=== PATIENT | male | born 1995 | race American Indian/Alaskan Native ===

== ENCOUNTER 2024-06-28 20:49 | Emergency (ER) | payer SELFPAY ==
[2024-06-28] MEDS: Iopamidol 612 MG/ML 100 ML Bottle IVPUSH ONE (20:58)
[2024-06-28 21:11] LABS: BASOPHILS PERCENT AUTO 0.1 % (0.0-1.0); EOSINOPHILS PERCENT AUTO 1.8 % (1.0-3.0); HEMATOCRIT 42.3 % (40.0-54.0); HEMOGLOBIN 15.1 g/dL (14.0-18.0); LYMPHOCYTES PERCENT AUTO 7.3 % (20.5-50.1); MEAN CORPUSCULAR HEMOGLOBIN 31.9 pg (27.0-34.0); MEAN CORPUSCULAR HGB CONC 35.7 g/dL (33.0-35.0); MEAN CORPUSCULAR VOLUME 89.4 fL (80-100); MONOCYTES PERCENT AUTO 5.6 % (2-8); NEUTROPHILS PERCENT AUTO 85.2 % (42.2-75.2); PLATELET COUNT,PLT 168 10^3/uL (150-450); RED BLOOD CELL COUNT 4.73 10^6/uL (4.6-6.2); WHITE BLOOD CELL COUNT,WBC 10.8 10^3/uL (5.0-10.0)
[2024-06-28] MEDS: Thiamine 500 MG in Sodium Chloride 0.9% 250 ML IV ONE (21:21)
[2024-06-28] MEDS: Sodium Chloride 0.9% 1,000 ML IV ONE ×2 (21:22→22:45)
[2024-06-28 21:36] LABS: LACTIC ACID 0.8 mmol/L (0.4-2.0)
[2024-06-28 21:42] LABS: ALANINE AMINOTRANSFERASE,ALT 28 U/L (16-63); ALBUMIN 3.6 g/dL (3.4-5.0); ALKALINE PHOSPHATASE 164 U/L (46-116); ANION GAP 14.3 mEq/L (7-13); ASPARTATE AMNIOTRANSFERASE,AST 43 U/L (15-37); BILIRUBIN TOTAL 1.5 mg/dL (0.2-1.0); BLOOD UREA NITROGEN,BUN 13 mg/dL (7-18); BUN/CREATININE RATIO 13.1 (No establ ref range); CALCIUM 9.5 mg/dL (8.5-10.1); CARBON DIOXIDE,CO2 27 mmol/L (21-32); CHLORIDE,CL 101 mmol/L (98-107); CREATININE 0.99 mg/dL (0.70-1.30); GLUCOSE RANDOM 112 mg/dL (70-99); LIPASE 46 U/L (16-77); MAGNESIUM 1.7 mg/dL (1.8-2.4); POTASSIUM,K 3.3 mmol/L (3.5-5.1); PROTEIN TOTAL,TP 7.3 g/dL (6.4-8.2); SODIUM,NA 139 mmol/L (136-145)
[2024-06-28 21:43] LABS: ESTIMATED GFR 107 mL/min (>=60); ETHANOL BLOOD MEDICAL < 3 mg/dL (0)
[2024-06-28 23:21] LABS: APPEARANCE,URINE CLEAR (CLEAR); BILIRUBIN,URINE NEGATIVE (NEGATIVE); COLOR,URINE YELLOW (YELLOW); GLUCOSE,URINE NEGATIVE (NEGATIVE); KETONES,URINE 80 (NEGATIVE); LEUKOCYTE ESTERASE,URINE NEGATIVE (NEGATIVE); NITRITE,URINE NEGATIVE (NEGATIVE); OCCULT BLOOD,URINE NEGATIVE (NEGATIVE); PROTEIN,URINE NEGATIVE (NEGATIVE); UROBILINOGEN,URINE 0.2 mg/dL (0.2-1.0)
[2024-06-28 23:23] LABS: AMPHETAMINES,URINE NEGATIVE (NEGATIVE); BARBITURATES,URINE NEGATIVE (NEGATIVE); BENZODIAZEPINE,URINE NEGATIVE (NEGATIVE); MDMA (ECSTASY), URINE NEGATIVE (NEGATIVE); METHADONE,URINE NEGATIVE (NEGATIVE); METHAMPHETAMINES,URINE NEGATIVE (NEGATIVE); OPIATES,URINE NEGATIVE (NEGATIVE); OXYCODONE,URINE NEGATIVE (NEGATIVE); PHENCYCLIDINE,URINE NEGATIVE (NEGATIVE); TCA,URINE NEGATIVE (NEGATIVE)
[2024-06-28] MEDS: LORazepam 2 MG/ML SDV IVPUSH ONE (23:34)
[2024-06-29] MEDS: diphenhydrAMINE 50 MG Cap PO ONE (03:23)
[2024-06-29] MEDS: LORazepam 1 MG Tab PO ONE ×2 (03:57→05:22)
[2024-06-29] MEDS: Haloperidol 5 MG Tab PO ONE (04:42)
[2024-06-29] MEDS: diazePAM 5 MG Tab PO ONE (06:12)
[2024-06-29] MEDS: Haloperidol Lactate 5 MG/ML SDV IM ONE (06:38)
[2024-06-29] MEDS: LORazepam 2 MG/ML SDV IM ONE (06:38)
[2024-06-29] MEDS: Midazolam 1 MG/ML 2 ML SDV IM ONE (07:03)
[2024-06-29] MEDS: Midazolam 1 MG/ML 2 ML SDV ONE (08:26)
[2024-06-29] MEDS: Midazolam 5 MG/ML 10 ML MDV ONE (08:27)
[2024-06-29 08:28] LABS: TSH ULTRASENSITIVE 0.67 uIU/mL (0.36-3.74)
[2024-06-29] MEDS: Ketamine 500 mg/10 ML MDV IM ONE ×2 (09:00→09:33)
[2024-06-29] MEDS: propofoL 1,000 MG/100 ML 100 ML IV SCH (09:53)
[2024-06-29] MEDS ORDERED: fentaNYL 500 MCG in Sodium Chloride 0.9% 50 ML IV SCH (10:30)
[2024-06-29] MEDS: Benzocaine 20% Topical Spray UD MUCMEM ONE (10:47)
[2024-07-01 17:47] LABS: CD4 % 37 % (32-64); CD4 ABSOLUTE 310 cells/uL (430-1800)
== END 2024-06-29 11:16 ==
LOC: DL.ED 20:49
DX: R07.89 Other chest pain (principal); F29 Unspecified psychosis not due to a substance or known physiological condition; W01.0XXA Fall on same level from slipping, tripping and stumbling without subsequent striking against object, initial encounter; Y93.89 Activity, other specified
CPT/HCPCS: 31500; 36415; 51702; 70450; 71045; 74177; 80053; 80305; 80307; 81003; 82607; 82947; 83605; 83690; 83735; 84443; 85025; 86361; 86592; 86593; 86780; 87389; 96361; 96365; 96367; 96368; 96372; 96375; 99285; A9270; J1630; J2060; J2250; J2704; J3010; J3411; J3490; J7030; Q0163; Q9967

== ENCOUNTER 2024-08-13 11:49 | Emergency (ER) | payer MEDICAID, OTHER ==
[2024-08-13] MEDS: Sodium Chloride 0.9% 10 ML Syringe FLUSH PRN (12:07)
[2024-08-13] MEDS: Ondansetron 4 MG/2 ML SDV IVPUSH ONE ×2 (12:07→14:54)
[2024-08-13] MEDS: Sodium Chloride 0.9% 1,000 ML IV ONE (12:07)
[2024-08-13] MEDS: Thiamine 100 MG in Sodium Chloride 0.9% 100 ML IV ONE (12:07)
[2024-08-13 12:19] LABS: BASOPHILS PERCENT AUTO 0.4 % (0.0-1.0); EOSINOPHILS PERCENT AUTO 0.7 % (1.0-3.0); HEMATOCRIT 43.4 % (40.0-54.0); HEMOGLOBIN 14.9 g/dL (14.0-18.0); LYMPHOCYTES PERCENT AUTO 26.9 % (20.5-50.1); MEAN CORPUSCULAR HEMOGLOBIN 30.5 pg (27.0-34.0); MEAN CORPUSCULAR HGB CONC 34.3 g/dL (33.0-35.0); MEAN CORPUSCULAR VOLUME 88.8 fL (80-100); MONOCYTES PERCENT AUTO 6.8 % (2-8); NEUTROPHILS PERCENT AUTO 65.2 % (42.2-75.2); PLATELET COUNT,PLT 344 10^3/uL (150-450); RED BLOOD CELL COUNT 4.89 10^6/uL (4.6-6.2); WHITE BLOOD CELL COUNT,WBC 4.6 10^3/uL (5.0-10.0)
[2024-08-13] MEDS: LORazepam 2 MG/ML SDV IVPUSH ONE (12:23)
[2024-08-13 12:39] LABS: A/G RATIO 1.1; ALBUMIN 4.1 g/dL (3.4-5.0); ANION GAP 15.3 mEq/L (7-13); BILIRUBIN TOTAL 1.4 mg/dL (0.2-1.0); CALCIUM 8.7 mg/dL (8.5-10.1); CREATININE 0.75 mg/dL (0.70-1.30); EST CRCL DRUG DOSING (CG) 166.11 mL/min; INR 1.1 (0.9-1.2); POTASSIUM,K 3.3 mmol/L (3.5-5.1); PROTEIN TOTAL,TP 7.7 g/dL (6.4-8.2); PROTHROMBIN TIME 11.1 SEC (9.0-12.0)
[2024-08-13] MEDS: Lactated Ringers 1,000 ML IV SCH (13:09)
[2024-08-13 14:02] LABS: AMPHETAMINES,URINE NEGATIVE (NEGATIVE); BARBITURATES,URINE NEGATIVE (NEGATIVE); BENZODIAZEPINE,URINE NEGATIVE (NEGATIVE); MDMA (ECSTASY), URINE NEGATIVE (NEGATIVE); METHADONE,URINE NEGATIVE (NEGATIVE); METHAMPHETAMINES,URINE NEGATIVE (NEGATIVE); OPIATES,URINE NEGATIVE (NEGATIVE); OXYCODONE,URINE NEGATIVE (NEGATIVE); PHENCYCLIDINE,URINE NEGATIVE (NEGATIVE); TCA,URINE NEGATIVE (NEGATIVE)
[2024-08-13] MEDS: LORazepam 1 MG Tab PO ONE (15:02)
[2024-08-13] MEDS: Take Home: hydrOXYzine HCl 25 MG Tab, 4 Tab Pack PO ONE (15:37)
[2024-08-13] MEDS: Take Home: Ondansetron 4 MG Tab.DIS, 5 Tab Pack PO ONE (15:37)
[2024-08-13] MEDS: Potassium Chloride 10 MEQ Tab.ER PO ONE (15:45)
== END 2024-08-13 16:45 | disposition home or self-care (01) ==
LOC: DL.ED 11:49
DX: E86.0 Dehydration (principal); E87.5 Hyperkalemia; F10.120 Alcohol abuse with intoxication, uncomplicated; Z88.8 Allergy status to other drugs, medicaments and biological substances
CPT/HCPCS: 36415; 80053; 80305; 80307; 83690; 85025; 85610; 96361; 96365; 96375; 96376; 99284; A9270; J2060; J2405; J3411; J7030; J7120; Q0162